=== PATIENT | female | born 1985 | race Caucasian/White ===

== ENCOUNTER 2016-04-15 05:57 | Inpatient (IN) | payer OTHER ==
[~2016-04-15] VITALS: Ht 165.1 cm; Wt 78.1 kg
--- NOTE | ~2016-04-15 | OR ---
PATIENT'S NAME: RHETT GALLAGHER [facility] AGE: 31 [address] ROOM: [address] [address] LOCATION: GOBS ADMIT DATE: 04/15/2016 OR/Procedure Report DISCHARGE DATE: FAMILY PHYSICIAN: Jeaneth Rahman MD ATTENDING PHYSICIAN: Jeaneth Rahman SURGEON: Jeaneth Rahman MD INTERNET MARKETING SPECIALIST: DATE OF PROCEDURE: 04/15/2016 DELIVERY NOTE: This 31-year-old G2, P1 female under no anesthesia, delivered a viable male weighing 8 pounds, 3 ounces with scores of 8 and 9 at one and five minutes. Mom wished for induction of labor at 39 weeks and 6/7th days . Her cervix was favorable at 4 cm on admission. We did place a 125 mcg Cytotec; and then 4 hours later, did start Pitocin. She only needed 5 milliunits of Pitocin and I did attempt artificial rupture of membranes, but was unsure if I actually did get it, but I do feel like I did now, and fluid was clear, but minimal. Mom progressed rather fast from 5- 10 cm. She pushed nicely to complete. Delivery was via spontaneous vaginal delivery to a sterile field. There was a loose nuchal cord that was reduced at the perineum. The anterior shoulder was the left shoulder and delivered nicely. The baby was then bulb-suctioned at delivery and stimulated and had a nice cry. Baby pinked up nicely. The cord was cut by the director [employer] of nursing and baby was handed to the nurse as mom did not want to do [id number] right away when the baby cleaned up. Cord blood was then sent for analysis. The intact placenta with 3-vessel cord delivered spontaneously shortly after delivery of the baby. The patient's uterus was massaged and firms up nicely and her Pitocin was opened up and given through her bag of IV fluids. The patient's cervix, vagina, and perineum are explored. She does have a very short bilateral periurethral abrasions that had minimal bleeding and therefore not repaired. Sponge counts and needle counts are correct. Estimated blood loss was 300 mL. Both mom and baby are doing well and in stable condition. JEAENTH J MD ESTEFANI RAHMAN/charliel /[id number] d: [birth year]/160 t: 05/05/162110, OPERATIVE SUMMARY
[2016-04-15] MEDS ORDERED: TUMS200 MG PO (06:59)
[2016-04-15] MEDS ORDERED: PRENATAL 1+1)(P1 TAB PO (06:59)
[2016-04-15] MEDS ORDERED: CARAFATE1 GM PO (07:00)
[2016-04-15] MEDS ORDERED: PRILOSEC20 MG PO (07:00)
[2016-04-15 08:19] LABS: BASOPHIL % 0.3 %; EOSINOPHIL # 0.1 K/uL (0.0-0.5); EOSINOPHIL % 1.3 %; HEMATOCRIT 32.9 % (33.0-46.0); HEMOGLOBIN 10.8 g/dL (11.0-15.0); IMMATURE GRANULOCYTE # 0.1 K/uL (0.0-0.3); IMMATURE GRANULOCYTE % 0.8 %; LYMPHOCYTE # 1.2 K/uL (0.8-4.0); LYMPHOCYTE % 19.4 %; MCH 29.5 pg (27.0-34.0); MCHC 32.8 gm/dL (32.0-36.5); MCV 89.9 fl (83.0-98.0); MONOCYTE # 0.5 K/uL (0.0-1.0); MONOCYTE % 8.4 %; MPV 13.6 fl (9.4-12.4); NEUTROPHIL # (ANC) 4.2 K/uL (1.8-7.8); NEUTROPHIL % 69.8 %; NRBC % 0 /100WBC (0-0.00); PLATELET COUNT 115 K/uL (150-450); RBC 3.66 M/uL (3.50-5.50); RDW-CV 12.3 % (11.9-14.6); WBC 6.1 K/uL (4.0-11.0)
--- NOTE | 2016-04-16 04:16 | NUR ---
VSS. Fundus firm. SL to left hand. Percocet and Motrin at 1950. Independent with [facility].
[2016-04-16 04:28] LABS: BASOPHIL % 0.2 %; EOSINOPHIL # 0.1 K/uL (0.0-0.5); IMMATURE GRANULOCYTE # 0.1 K/uL (0.0-0.3); IMMATURE GRANULOCYTE % 0.6 %; LYMPHOCYTE # 1.5 K/uL (0.8-4.0); LYMPHOCYTE % 15.7 %; MCH 29.1 pg (27.0-34.0); MCHC 32.1 gm/dL (32.0-36.5); MCV 90.6 fl (83.0-98.0); MONOCYTE # 0.8 K/uL (0.0-1.0); MONOCYTE % 8.2 %; MPV 12.9 fl (9.4-12.4); NEUTROPHIL % 74.3 %; NRBC % 0 /100WBC (0-0.00); PLATELET COUNT 119 K/uL (150-450); RBC 3.09 M/uL (3.50-5.50); RDW-CV 12.5 % (11.9-14.6); WBC 9.4 K/uL (4.0-11.0)
--- NOTE | 2016-04-17 04:17 | NUR ---
VSS, FUNDUS FIRM, 1 FINGER BELOW UMBILICUS, SMALL FLOW. 1 PERCOCET GIVEN AT 1824 AND MOTRIN GIVEN AT 0328 FOR CRAMPING. PT IS INDEPENDENT WITH [facility]. HOME TODAY.
[2016-04-17] MEDS ORDERED: APNO TOP (09:26)
[2016-04-17] MEDS ORDERED: SURFAK240 MG PO (09:26)
[2016-04-17] MEDS ORDERED: MOTRIN800 MG PO (09:27)
[2016-04-17] MEDS ORDERED: PERCOCET 5-3251 EACH PO (09:27)
== END 2016-04-17 12:00 | disposition disaster alternative care site (69) | DRG 775 ==
LOC: GOBS 05:57
PROVIDERS: ADMIT Family Medicine
PROC: 10907ZC Drainage of Amniotic Fluid, Therapeutic from Products of Conception, Via Natural or Artificial Opening (ICD-10-PCS; principal; 2016-04-15)
PROC: 10E0XZZ Delivery of Products of Conception, External Approach (ICD-10-PCS; principal; 2016-04-15)
PROC: 3E033VJ Introduction of Other Hormone into Peripheral Vein, Percutaneous Approach (ICD-10-PCS; principal; 2016-04-15)
PROC: 3E0P7GC Introduction of Other Therapeutic Substance into Female Reproductive, Via Natural or Artificial Opening (ICD-10-PCS; principal; 2016-04-15)
DX: O71.82 Other specified trauma to perineum and vulva (principal); O69.81X0 Labor and delivery complicated by cord around neck, without compression, not applicable or unspecified; Z3A.39 39 weeks gestation of pregnancy; Z37.0 Single live birth
CPT/HCPCS: J2590; J3010; J7120